=== PATIENT | male | born 1940 | race Caucasian/White ===

== ENCOUNTER 2018-07-02 08:18 | Inpatient (IN) | payer MEDICARE, OTHER ==
[~2018-07-02] VITALS: Ht 172.7 cm; Wt 104.5 kg
[2018-07-02 09:00] LABS: BASOPHILS # (AUTO) 0.1 X10'3 (0-0.2); BASOPHILS % (AUTO) 0.4 % (0-1); EOSINOPHILS # (AUTO) 0.4 X10'3 (0-0.9); EOSINOPHILS % (AUTO) 2.7 % (0-6); HEMATOCRIT 42.7 % (42.0-52.0); HEMOGLOBIN 14.3 g/dl (14.0-17.9); LYMPHOCYTES # (AUTO) 2.1 X10'3 (1.1-4.8); MEAN CORPUSCULAR HEMOGLOBIN 31.7 PG (27.0-31.0); MEAN CORPUSCULAR HGB CONC 33.6 % (33.0-36.5); MEAN CORPUSCULAR VOLUME 94.3 FL (78-98); MEAN PLATELET VOLUME 9.1 FL (7.4-10.4); MONOCYTES # (AUTO) 0.4 X10'3 (0-0.9); MONOCYTES % (AUTO) 3.4 % (2-12); NEUTROPHILS # (AUTO) 10.2 X10'3 (1.8-7.7); NEUTROPHILS % (AUTO) 77.5 % (42-75); PLATELET COUNT 210 X10'3 (140-440); RED BLOOD COUNT 4.52 X10'6 (4.70-6.10); RED CELL DISTRIBUTION WIDTH 12.6 % (11.5-14.5); WHITE BLOOD COUNT 13.2 X10'3 (4.5-11.0)
[2018-07-02 09:12] LABS: ALANINE AMINOTRANSFERASE 53 U/L (12-78); ALBUMIN 3.6 G/DL (3.4-5.0); ALKALINE PHOSPHATASE 67 IU/L (46-116); ANION GAP 13 (8-16); ASPARTATE AMINO TRANSFERASE 35 U/L (10-37); BILIRUBIN,TOTAL 0.8 MG/DL (0.1-1.0); BLOOD UREA NITROGEN 14 MG/DL (7-18); BUN/CREATININE RATIO 13.1 (5.4-32.0); CALCIUM 8.2 MG/DL (8.5-10.1); CHLORIDE 104 MMOL/L (99-107); CREATININE 1.07 MG/DL (0.60-1.10); GLUCOSE 249 MG/DL (70-104); SODIUM 141 MMOL/L (135-145); TOTAL CARBON DIOXIDE 23.6 MMOL/L (24-32); TOTAL PROTEIN 7.3 G/DL (6.4-8.2); eGFR 67 ML/MIN
[2018-07-02] MEDS ORDERED: potassium 10mEq/100ml NS w/LIDOcaine (10mg/bag) IV ONE (09:15)
[2018-07-02] MEDS ORDERED: magnesium 2GM in 50ml NS 50 ML IV ONE (09:15)
[2018-07-02 09:23] LABS: ETHANOL < 0.010 GM/DL (0.0-0.010); MAGNESIUM 1.7 MG/DL (1.5-2.4)
[2018-07-02 09:35] LABS: INR 1.1 INR; PARTIAL THROMBOPLASTIN TIME 30 SECONDS (22-32); PROTHROMBIN TIME 10.9 SECONDS (9.0-12.0)
[2018-07-02 10:04] LABS: URINE AMPHETAMINE SCREEN NEGATIVE (Neg); URINE BARBITUATE SCREEN NEGATIVE (Neg); URINE BENZODIAZEPINES SCREEN NEGATIVE (Neg); URINE CANNABINOID SCREEN NEGATIVE (Neg); URINE COCAINE SCREEN NEGATIVE (Neg); URINE METHADONE SCREEN NEGATIVE (Neg); URINE OPIATE SCREEN NEGATIVE (Neg); URINE PHENCYCLIDINE SCREEN NEGATIVE (Neg)
[2018-07-02] MEDS ORDERED: acetaminophen 325mg tablet PO PRN ×2 (10:05)
[2018-07-02] MEDS ORDERED: potassium Cl 20 mEq SR tablet PO PRN ×2 (10:05)
[2018-07-02] MEDS ORDERED: potassium Cl 40MEQ/NS 500ml 500 ML IV PRN ×2 (10:05)
[2018-07-02] MEDS ORDERED: magnesium 2GM in 50ml NS 50 ML IV PRN (10:05)
[2018-07-02] MEDS ORDERED: ondansetron/PF 4mg/2ml inj IV PRN (10:05)
[2018-07-02] MEDS ORDERED: magnesium Cl slow-release 64mg tablet PO PRN (10:05)
[2018-07-02] MEDS ORDERED: magnesium 4gm in 100ml NS 100 ML IV PRN (10:05)
[2018-07-02] MEDS ORDERED: OMEP40CA37 PO (10:44)
[2018-07-02] MEDS ORDERED: METF500T PO (10:44)
[2018-07-02] MEDS ORDERED: LOSA50TA3 PO (10:44)
[2018-07-02] MEDS ORDERED: FLO0.4C PO (10:44)
[2018-07-02] MEDS ORDERED: PRAV40TA PO (10:44)
[2018-07-02] MEDS ORDERED: HYDR12.5 PO (10:44)
[2018-07-02] MEDS: normal saline 1000ml 1,000 ML IV SCH ×2 (10:49→19:53)
--- NOTE | 2018-07-02 11:50 | NUR ---
received report from [facility]
[2018-07-02 12:00] VITALS: BP 135/76
--- NOTE | 2018-07-02 12:30 | NUR ---
1230 patient received to room 3016 via ER staff, VSS.
[2018-07-02] MEDS ORDERED: dextrose 50%-water 50ml dispensing syringe IV PRN ×2 (13:40)
[2018-07-02] MEDS ORDERED: insulin Lispro (HumaLOG) vial - multi-dose SQ SCH (13:40)
[2018-07-02] MEDS ORDERED: dextrose ORAL solution 15 GM/59 ML bottle PO PRN ×2 (13:40)
[2018-07-02] MEDS ORDERED: glucagon, human recombinant 1mg kit SUBCUT PRN (13:40)
[2018-07-02] MEDS ORDERED: MESSAGE TO PHARMACY PO ONE (13:40)
[2018-07-02 15:00] VITALS: BP 129/77
[2018-07-02] MEDS: benzonatate 100mg capsule PO SCH (16:00)
--- NOTE | 2018-07-02 18:14 | NUR ---
Problems reprioritized. Patient report given, questions answered & plan of care reviewed with Liberty ARGUETA.
--- NOTE | 2018-07-02 18:17 | NUR ---
Received report from Jackie ARGUETA. Assumed patient care. Patient is awake and alert having his blood drawn. In no apparent distress on room air. Call light and items of frequent use within reach. Will continue to monitor for change.
[2018-07-02 19:00] VITALS: BP 139/85
[2018-07-02] MEDS ORDERED: ASPI81TA52 PO (19:41)
[2018-07-02] MEDS: heparin, porcine 5000 units/ml vial SQ SCH (19:46)
[2018-07-02] MEDS: docusate sod 100mg capsule PO SCH (19:47)
[2018-07-02] MEDS ORDERED: temazepam 15mg capsule PO PRN (21:00)
[2018-07-02] MEDS ORDERED: insulin glargine (Lantus) pen - multi-dose SQ SCH (21:00)
[2018-07-02 23:00] VITALS: BP_SYST 135; BP_SYST 144; BP_SYST 149; BP_DIAS 71; BP_DIAS 79; BP_DIAS 86
[2018-07-03] MEDS: benzonatate 100mg capsule PO SCH ×2 (00:07→07:30)
[2018-07-03 03:00] VITALS: BP 140/74
[2018-07-03] MEDS: normal saline 1000ml 1,000 ML IV SCH (04:41)
[2018-07-03 06:00] VITALS: BP 140/80
[2018-07-03 06:02] LABS: BASOPHILS % (AUTO) 0.6 % (0-1); EOSINOPHILS # (AUTO) 0.3 X10'3 (0-0.9); EOSINOPHILS % (AUTO) 3.7 % (0-6); HEMATOCRIT 42.1 % (42.0-52.0); HEMOGLOBIN 14.4 g/dl (14.0-17.9); LYMPHOCYTES % (AUTO) 26.1 % (21-51); MEAN CORPUSCULAR HEMOGLOBIN 32.3 PG (27.0-31.0); MEAN CORPUSCULAR HGB CONC 34.3 % (33.0-36.5); MEAN CORPUSCULAR VOLUME 94.2 FL (78-98); MEAN PLATELET VOLUME 8.6 FL (7.4-10.4); MONOCYTES # (AUTO) 0.5 X10'3 (0-0.9); MONOCYTES % (AUTO) 6.7 % (2-12); NEUTROPHILS # (AUTO) 4.9 X10'3 (1.8-7.7); NEUTROPHILS % (AUTO) 62.9 % (42-75); PLATELET COUNT 217 X10'3 (140-440); RED BLOOD COUNT 4.47 X10'6 (4.70-6.10); RED CELL DISTRIBUTION WIDTH 12.3 % (11.5-14.5); WHITE BLOOD COUNT 7.8 X10'3 (4.5-11.0)
--- NOTE | 2018-07-03 06:11 | NUR ---
Patient in room PCU 3016. I have received report from Liberty Toure and had the opportunity to ask questions and assume patient care. Pt is alert and oriented X 4, NS running at 100, in no apparent distress will continue to monitor.
--- NOTE | 2018-07-03 06:11 | NUR ---
Reported off to Mary ARGUETA. Patient is awake and alert on room air. In no apparent distress. Call light and items of frequent use within reach.
[2018-07-03 06:13] LABS: ALBUMIN 3.3 G/DL (3.4-5.0); ANION GAP 8 (8-16); BLOOD UREA NITROGEN 13 MG/DL (7-18); BUN/CREATININE RATIO 13.5 (5.4-32.0); CALCIUM 8.2 MG/DL (8.5-10.1); CHLORIDE 105 MMOL/L (99-107); CREATININE 0.96 MG/DL (0.60-1.10); GLUCOSE 156 MG/DL (70-104); MAGNESIUM 1.9 MG/DL (1.5-2.4); POTASSIUM 3.8 MMOL/L (3.5-5.1); SODIUM 139 MMOL/L (135-145); TOTAL CARBON DIOXIDE 26.2 MMOL/L (24-32); eGFR 76 ML/MIN
[2018-07-03] MEDS: heparin, porcine 5000 units/ml vial SQ SCH (07:29)
[2018-07-03] MEDS: docusate sod 100mg capsule PO SCH (07:31)
[2018-07-03 08:00] VITALS: BP 145/84
[2018-07-03] MEDS ORDERED: levoFLOXACIN-Levaquin 500mg/D5 100 ML IV SCH (08:00)
[2018-07-03] MEDS ORDERED: K and/or MAG REPLACEMENT MC SCH (08:00)
[2018-07-03] MEDS ORDERED: BENZ-16 PO (10:12)
[2018-07-03] MEDS ORDERED: AZIT500T2 PO (10:12)
--- NOTE | 2018-07-03 12:20 | NUR ---
IV discontinued with canula intact, tele discontinued, educated pt on discharge instructions including patients next appointment and medication regimen. pt is stable, alert and oriented X4, vital signs stable and pt is able to walk with no complaints of dizziness. Pt left in own vehicle driven by his with all of his belongings.
[2018-07-07] MEDS ORDERED: AMLO10TA PO (16:20)
== END 2018-07-03 12:10 | disposition home or self-care (01) | DRG 312 ==
LOC: ER 08:19 → ED HOLD 10:02 → PCU 3S 12:10
PROVIDERS: ADMIT Internal Medicine; ATTEND Family Medicine
DX: R55 Syncope and collapse (principal); R00.1 Bradycardia, unspecified; J06.9 Acute upper respiratory infection, unspecified; E11.9 Type 2 diabetes mellitus without complications; E83.51 Hypocalcemia; E87.6 Hypokalemia; I10 Essential (primary) hypertension; I45.10 Unspecified right bundle-branch block; I44.0 Atrioventricular block, first degree; Z79.899 Other long term (current) drug therapy; Z79.84 Long term (current) use of oral hypoglycemic drugs
CPT/HCPCS: 36415; 71045; 80048; 80053; 80305; 80320; 82948; 83036; 83735; 84132; 84484; 85025; 85610; 85730; 93005; 93306; 93880; 96374; 99285; G0378; J1644; J1815; J1956; J3475; J7030

== ENCOUNTER 2018-07-07 02:28 | Inpatient (IN) | payer MEDICARE, OTHER | END 2018-07-08 14:27 | disposition home or self-care (01) | LOC: ER 02:28 → ED HOLD 04:13 → CICU 2S 05:35 | PROC: 0JH607Z Insertion of Cardiac Resynchronization Pacemaker Pulse Generator into Chest Subcutaneous Tissue and Fascia, Open Approach (ICD-10-PCS; principal; ~2018-07-07) | PROC: 02H63JZ Insertion of Pacemaker Lead into Right Atrium, Percutaneous Approach (ICD-10-PCS; ~2018-07-07) | DX: R00.1 Bradycardia, unspecified (principal); E87.6 Hypokalemia ==

== ENCOUNTER 2018-07-21 12:40 | Emergency (ER) | payer MEDICARE, OTHER ==
[~2018-07-21] VITALS: Ht 172.7 cm; Wt 100.6 kg
[~2018-07-21 12:40] MED LIST: AMLO10TA PO; ASPI81TA52 PO; BENZ-16 PO; CEPH-572 PO; FLO0.4C PO; HYDR12.5 PO; LOSA50TA3 PO; METF500T PO; OMEP40CA37 PO; PRAV40TA PO
[2018-07-21 13:18] LABS: BASOPHILS % (AUTO) 0.3 % (0-1); EOSINOPHILS # (AUTO) 0.2 X10'3 (0-0.9); HEMOGLOBIN 14.9 g/dl (14.0-17.9); LYMPHOCYTES # (AUTO) 1.4 X10'3 (1.1-4.8); LYMPHOCYTES % (AUTO) 13.9 % (21-51); MEAN CORPUSCULAR HGB CONC 33.9 g/dL (33.0-36.5); MEAN CORPUSCULAR VOLUME 94.4 FL (78-98); MEAN PLATELET VOLUME 8.5 FL (7.4-10.4); MONOCYTES # (AUTO) 0.4 X10'3 (0-0.9); MONOCYTES % (AUTO) 4.4 % (2-12); NEUTROPHILS # (AUTO) 7.8 X10'3 (1.8-7.7); NEUTROPHILS % (AUTO) 79.4 % (42-75); PLATELET COUNT 299 X10'3 (140-440); RED BLOOD COUNT 4.66 X10'6 (4.70-6.10); RED CELL DISTRIBUTION WIDTH 12.3 % (11.5-14.5); WHITE BLOOD COUNT 9.9 X10'3 (4.5-11.0)
[2018-07-21 13:32] LABS: ALANINE AMINOTRANSFERASE 34 U/L (12-78); ALKALINE PHOSPHATASE 76 IU/L (46-116); ANION GAP 15 (8-16); ASPARTATE AMINO TRANSFERASE 24 U/L (10-37); BILIRUBIN,TOTAL 0.7 MG/DL (0.1-1.0); BLOOD UREA NITROGEN 18 MG/DL (7-18); CALCIUM 9.4 MG/DL (8.5-10.1); CHLORIDE 100 MMOL/L (99-107); GLUCOSE 126 MG/DL (70-104); POTASSIUM 3.6 MMOL/L (3.5-5.1); SODIUM 140 MMOL/L (135-145); TOTAL PROTEIN 7.9 G/DL (6.4-8.2); eGFR 59 ML/MIN
[2018-07-21 13:36] LABS: INR 1.1 INR; PARTIAL THROMBOPLASTIN TIME 34 SECONDS (22-32)
[2018-07-21 14:37] LABS: D-DIMER 0.42 MG/L FEU (0-0.50)
[2018-07-21 14:45] VITALS: BP 135/61
== END 2018-07-21 15:01 | disposition home or self-care (01) ==
LOC: ER 12:41
DX: R06.02 Shortness of breath (principal); I10 Essential (primary) hypertension; Z95.0 Presence of cardiac pacemaker; Z79.82 Long term (current) use of aspirin; Z79.899 Other long term (current) drug therapy
CPT/HCPCS: 36415; 71045; 80053; 82948; 84484; 85025; 85379; 85610; 85730; 93005; 99284

== ENCOUNTER 2020-09-28 14:18 | Emergency (ER) | payer MEDICARE, OTHER ==
[~2020-09-28] VITALS: Ht 172.7 cm; Wt 100.0 kg
[~2020-09-28 14:18] MED LIST changes: -BENZ-16 PO; +OMEP40CA13 PO; -OMEP40CA37 PO
[2020-09-28 16:42] VITALS: BP 152/101
== END 2020-09-28 18:29 | disposition home or self-care (01) ==
LOC: ER 14:18
DX: M25.562 Pain in left knee (principal); I10 Essential (primary) hypertension; Z95.0 Presence of cardiac pacemaker; Z72.89 Other problems related to lifestyle; Z79.82 Long term (current) use of aspirin; Z79.2 Long term (current) use of antibiotics; Z79.899 Other long term (current) drug therapy
CPT/HCPCS: 73564; 93971; 99284

== ENCOUNTER 2021-07-09 15:12 | Emergency (ER) | payer MEDICARE, OTHER ==
[~2021-07-09] VITALS: Ht 172.7 cm; Wt 102.3 kg
[~2021-07-09 15:12] MED LIST changes: -OMEP40CA13 PO; +OMEP40CA21 PO
[2021-07-09 15:40] LABS: BASOPHILS # (AUTO) 0.1 X10'3 (0-0.2); EOSINOPHILS # (AUTO) 0.3 X10'3 (0-0.9); EOSINOPHILS % (AUTO) 3.4 % (0-6); HEMATOCRIT 46.6 % (42.0-52.0); LYMPHOCYTES # (AUTO) 2.1 X10'3 (1.1-4.8); LYMPHOCYTES % (AUTO) 22.8 % (21-51); MEAN CORPUSCULAR HEMOGLOBIN 31.4 PG (27.0-31.0); MEAN CORPUSCULAR HGB CONC 34.2 g/dL (33.0-36.5); MEAN CORPUSCULAR VOLUME 91.6 FL (78-98); MEAN PLATELET VOLUME 8.6 FL (7.4-10.4); MONOCYTES # (AUTO) 0.7 X10'3 (0-0.9); NEUTROPHILS # (AUTO) 6.1 X10'3 (1.8-7.7); NEUTROPHILS % (AUTO) 64.8 % (42-75); PLATELET COUNT 239 X10'3 (140-440); RED BLOOD COUNT 5.09 X10'6 (4.70-6.10); RED CELL DISTRIBUTION WIDTH 13.3 % (11.5-14.5); WHITE BLOOD COUNT 9.4 X10'3 (4.5-11.0)
[2021-07-09 15:53] LABS: ALANINE AMINOTRANSFERASE 25 U/L (12-78); ALBUMIN 4.1 G/DL (3.4-5.0); ALBUMIN/GLOBULIN RATIO 1.1 (1.1-1.5); ALKALINE PHOSPHATASE 74 IU/L (46-116); ANION GAP 10 (8-16); ASPARTATE AMINO TRANSFERASE 14 U/L (10-37); BILIRUBIN,TOTAL 0.8 MG/DL (0.1-1.0); BLOOD UREA NITROGEN 18 MG/DL (7-18); BUN/CREATININE RATIO 17.6 (5.4-32.0); CALCIUM 9.3 MG/DL (8.5-10.1); CHLORIDE 103 MMOL/L (99-107); CREATININE 1.02 MG/DL (0.60-1.10); GLUCOSE 136 MG/DL (70-104); POTASSIUM 3.3 MMOL/L (3.5-5.1); SODIUM 139 MMOL/L (135-145); TOTAL CARBON DIOXIDE 25.8 MMOL/L (24-32); eGFR 70 ML/MIN
[2021-07-09 18:12] VITALS: BP 139/86
== END 2021-07-09 18:44 | disposition home or self-care (01) ==
LOC: ER 15:12
DX: R06.02 Shortness of breath (principal); I10 Essential (primary) hypertension; E11.9 Type 2 diabetes mellitus without complications; Z95.0 Presence of cardiac pacemaker; Z72.89 Other problems related to lifestyle; Z79.82 Long term (current) use of aspirin; Z79.899 Other long term (current) drug therapy
CPT/HCPCS: 36415; 71045; 80053; 83880; 84443; 84484; 85025; 93005; 99285

== ENCOUNTER 2021-07-13 22:32 | Emergency (ER) | payer MEDICARE, OTHER ==
[~2021-07-13] VITALS: Ht 172.7 cm; Wt 82.8 kg
[2021-07-13 22:35] VITALS: BP 132/85
== END 2021-07-14 03:58 | disposition left against medical advice (07) ==
LOC: ER 22:32
DX: R04.0 Epistaxis (principal); Z53.21 Procedure and treatment not carried out due to patient leaving prior to being seen by health care provider